=== PATIENT | female | born 1960 | race Caucasian/White ===

== ENCOUNTER → 2017-06-29 | Outpatient (CLI) | payer BC ==
[~2017-06-29] MED LIST: AMARYL 2MG T2 MG/TAB PO; AMARYL PO; CALCIUM + D 6001 TA1 PO; GLUCOPHAGE1000 MG PO; GLUCOPHAGE500 MG PO; GLUCOPHAGE500 MG/TAB PO; PREMPRO 0.45 MG1 TAB PO; VITAMIN D31000 IU PO
== END ==
LOC: MC.RAD 08:06
DX: Z12.31 Encounter for screening mammogram for malignant neoplasm of breast (principal)

== ENCOUNTER → 2019-02-15 | Outpatient (CLI) | payer BC | LOC: MC.RAD 07:01 | DX: Z12.31 Encounter for screening mammogram for malignant neoplasm of breast (principal) ==

== ENCOUNTER 2019-05-27 06:54 | Day surgery (SDC) | payer BC ==
[~2019-05-27] VITALS: Ht 142.2 cm; Wt 64.1 kg
[2019-05-27] MEDS ORDERED: SYNTHROID0.125 MG/T PO (07:49)
[2019-05-27] MEDS ORDERED: ACTOS30 MG PO (07:50)
[2019-05-27] MEDS ORDERED: PRINIVIL10 MG PO (07:51)
[2019-05-27 08:15] VITALS: BP 114/82; PULSE 64; TEMP 97.8
[2019-05-27 09:03] VITALS: BP 101/59; PULSE 64; TEMP 97.7
--- NOTE | 2019-05-27 09:03 | NUR ---
Pt returns from endo procedure to [facility]. Pt ambulates from cart to recliner with RN assist. Monitors on and alarms set. Call light within reach. Report received from MICHAEL Paige. Pt alert and answering all questions appropriately. brought to room. Pt requests water. Patient denies pain or nausea and has no other complaints.
[2019-05-27 09:15] VITALS: BP 99/69; PULSE 61
--- NOTE | 2019-05-27 09:15 | NUR ---
Pt taking food and drink well. No complications stated or noted.
[2019-05-27 09:30] VITALS: BP 114/68; PULSE 59
--- NOTE | 2019-05-27 09:40 | NUR ---
Discharge instructions given to patient and . All questions answered to their satisfaction. Handed to them are a thank you card, discharge instructions, diagnosis information, and a discharge med sheet.
--- NOTE | 2019-05-27 09:45 | NUR ---
Pt transferred out of hospital via wheelchair and Susan, assist, to private vehicle driven by .
[2019-05-27 12:27] VITALS: BP 98/59; PULSE 67
== END 2019-05-27 09:45 | disposition home or self-care (01) ==
LOC: SDCO 06:54
DX: Z12.11 Encounter for screening for malignant neoplasm of colon (principal); K62.1 Rectal polyp; K51.40 Inflammatory polyps of colon without complications; K57.30 Diverticulosis of large intestine without perforation or abscess without bleeding; I10 Essential (primary) hypertension; E11.9 Type 2 diabetes mellitus without complications; Z86.010 Personal history of colon polyps; Z88.1 Allergy status to other antibiotic agents
CPT/HCPCS: J2250; J3010

== ENCOUNTER → 2020-09-20 | Outpatient (CLI) | payer BC ==
[~2020-09-20] MED LIST changes: +ACTOS30 MG PO; +PRINIVIL10 MG PO; +SYNTHROID0.125 MG/T PO
== END ==
LOC: MC.RAD 07:00
DX: Z12.31 Encounter for screening mammogram for malignant neoplasm of breast (principal)

== ENCOUNTER → 2021-11-08 | Outpatient (CLI) | payer BC | LOC: MC.RAD 07:30 | DX: Z12.31 Encounter for screening mammogram for malignant neoplasm of breast (principal) ==

== ENCOUNTER → 2022-11-07 | Outpatient (CLI) | payer BC | LOC: MC.RAD 07:00 | DX: Z12.31 Encounter for screening mammogram for malignant neoplasm of breast (principal) ==

== ENCOUNTER → 2023-11-09 | Outpatient (CLI) | payer BC | LOC: MC.RAD 07:18 | DX: Z12.31 Encounter for screening mammogram for malignant neoplasm of breast (principal) ==